=== PATIENT | female | born 2000 | race Two or more races ===

== ENCOUNTER 2024-10-29 13:25 | Emergency (ER) | payer OTHER ==
[~2024-10-29] VITALS: Ht 165.1 cm; Wt 59.9 kg
[2024-10-29] MEDS ORDERED: KETOROLAC TROMETHAMINE 30 MG VIAL IM STA (16:12)
[2024-10-29] MEDS ORDERED: KETOROLAC TROMETHAMINE 60 MG VIAL IM ONE (16:25)
== END 2024-10-29 16:59 | disposition home or self-care (01) ==
LOC: ER 13:25
DX: M26.629 Arthralgia of temporomandibular joint, unspecified side (principal)